=== PATIENT | female | born 1975 | race Caucasian/White ===

== ENCOUNTER 2018-03-25 13:59 | Emergency (ER) | payer BC ==
[2018-03-25 14:51] LABS: URINE BLOOD (Dip) POC 3+ (NEGATIVE); URINE GLUCOSE (Dip) POC Negative (NEGATIVE); URINE KETONES (Dip) POC Trace (NEGATIVE); URINE LEUKOCYTE EST (Dip) POC Negative (NEGATIVE); URINE NITRITE (Dip) POC Negative (NEGATIVE); URINE TOTAL PROTEIN POC Negative (NEGATIVE)
[2018-03-25 15:13] LABS: ADD MAN DIFF? NO
[2018-03-25 15:17] LABS: WHITE BLOOD COUNT 8.8 10^3/ul (4.8-10.8)
[2018-03-25 15:17] LABS: BASOPHILS % 0.3 % (0.0-2.0); EOSINOPHILS # 0.2 10^3/ul (0.0-0.5); HEMATOCRIT 35.7 % (37.0-47.0); HEMOGLOBIN 11.7 g/dl (12.0-16.0); LYMPHOCYTES # 1.8 10^3/ul (0.8-2.9); MEAN CORPUSCULAR HEMOGLOBIN 28.4 pg (29.0-33.0); MEAN CORPUSCULAR HGB CONC 32.8 g/dl (32.0-37.0); MEAN CORPUSCULAR VOLUME 86.7 fl (82.0-101.0); MEAN PLATELET VOLUME 10.4 fl (7.4-10.4); MONOCYTE # 0.9 10^3/ul (0.3-0.9); MONOCYTES % 9.7 % (0.0-11.0); NEUTROPHILS % 67.7 % (39.0-77.0); PLATELET COUNT 311 10^3/UL (140-415); RED BLOOD COUNT 4.12 10^6/ul (4.20-5.40); RED CELL DISTRIBUTION WIDTH 13.5 % (11.5-14.5)
== END 2018-03-25 16:30 | disposition home or self-care (01) ==
LOC: FTE 13:59
DX: O20.0 Threatened abortion (principal); O10.911 Unspecified pre-existing hypertension complicating pregnancy, first trimester; Z3A.01 Less than 8 weeks gestation of pregnancy; Z79.82 Long term (current) use of aspirin
CPT/HCPCS: 36415; 76801; 76817; 81003; 84702; 85025; 86900; 86901; 99284-25

== ENCOUNTER 2018-03-27 13:34 | Emergency (ER) | payer BC ==
[2018-03-27 15:06] LABS: ADD MAN DIFF? NO
[2018-03-27 15:12] LABS: BASOPHILS % 0.4 % (0.0-2.0); EOSINOPHILS # 0.2 10^3/ul (0.0-0.5); EOSINOPHILS % 2.4 % (0.0-7.0); HEMATOCRIT 36.5 % (37.0-47.0); LYMPHOCYTES # 2.3 10^3/ul (0.8-2.9); LYMPHOCYTES % 27.2 % (15.0-51.0); MEAN CORPUSCULAR HEMOGLOBIN 29.3 pg (29.0-33.0); MEAN CORPUSCULAR HGB CONC 32.9 g/dl (32.0-37.0); MEAN PLATELET VOLUME 10.4 fl (7.4-10.4); MONOCYTE # 0.8 10^3/ul (0.3-0.9); MONOCYTES % 9.7 % (0.0-11.0); NEUTROPHIL # 5.1 10^3/ul (1.6-7.5); NEUTROPHILS % 60.1 % (39.0-77.0); PLATELET COUNT 304 10^3/UL (140-415); RED CELL DISTRIBUTION WIDTH 13.1 % (11.5-14.5)
[2018-03-27 15:12] LABS: WHITE BLOOD COUNT 8.5 10^3/ul (4.8-10.8)
[2018-03-27 15:38] LABS: ADD UMIC NO; UR ASCORBIC ACID NEGATIVE (NEGATIVE); UR BILIRUBIN (Dip) NEGATIVE (NEGATIVE); UR BLOOD (Dip) NEGATIVE (NEGATIVE); UR CLARITY CLEAR (CLEAR); UR COLOR STRAW (YELLOW); UR GLUCOSE (Dip) NEGATIVE (NEGATIVE); UR KETONES (Dip) NEGATIVE (NEGATIVE); UR LEUKOCYTE ESTERASE (Dip) NEGATIVE Leu/ul (NEGATIVE); UR NITRITE (Dip) NEGATIVE (NEGATIVE); UR SPECIFIC GRAVITY (Dip) 1.006 (1.003-1.030); UR TOTAL PROTEIN (Dip) NEGATIVE (NEGATIVE); UR UROBILINOGEN (Dip) NEGATIVE (NEGATIVE)
== END 2018-03-27 17:03 | disposition home or self-care (01) ==
LOC: FTE 13:34
DX: O20.9 Hemorrhage in early pregnancy, unspecified (principal); O10.019 Pre-existing essential hypertension complicating pregnancy, unspecified trimester; R10.2 Pelvic and perineal pain; Z3A.00 Weeks of gestation of pregnancy not specified; Z79.82 Long term (current) use of aspirin
CPT/HCPCS: 76801; 76817; 81003; 84702; 85025; 99284-25

== ENCOUNTER 2018-04-01 14:57 | Emergency (ER) | payer BC ==
[2018-04-01 16:45] LABS: ADD UMIC NO; UR ASCORBIC ACID NEGATIVE (NEGATIVE); UR BILIRUBIN (Dip) NEGATIVE (NEGATIVE); UR BLOOD (Dip) NEGATIVE (NEGATIVE); UR CLARITY CLEAR (CLEAR); UR COLOR YELLOW (YELLOW); UR GLUCOSE (Dip) NEGATIVE (NEGATIVE); UR KETONES (Dip) NEGATIVE (NEGATIVE); UR LEUKOCYTE ESTERASE (Dip) NEGATIVE Leu/ul (NEGATIVE); UR NITRITE (Dip) NEGATIVE (NEGATIVE); UR SPECIFIC GRAVITY (Dip) 1.013 (1.003-1.030); UR TOTAL PROTEIN (Dip) NEGATIVE (NEGATIVE); UR UROBILINOGEN (Dip) NEGATIVE (NEGATIVE)
== END 2018-04-01 18:20 | disposition home or self-care (01) ==
LOC: FTE 18:20
DX: O26.891 Other specified pregnancy related conditions, first trimester (principal); R10.2 Pelvic and perineal pain; O10.011 Pre-existing essential hypertension complicating pregnancy, first trimester; Z3A.01 Less than 8 weeks gestation of pregnancy; Z79.82 Long term (current) use of aspirin
CPT/HCPCS: 36415; 76801; 76817; 81003; 84702; 99284-25

== ENCOUNTER 2018-04-06 12:52 | Day surgery (SDC) | payer BC ==
[2018-04-06 14:53] LABS: INR 1.16; PT RATIO 1.2
[2018-04-06 14:54] LABS: PARTIAL THROMBOPLASTIN TIME 32.6 Sec (25.0-35.0)
[2018-04-06] MEDS ORDERED: PROPOFOL 20 ML ×2 (17:29→17:47)
[2018-04-06] MEDS ORDERED: FENTAnyl 50 MCG/ML VIAL ×2 (17:29→17:30)
[2018-04-06] MEDS ORDERED: ONDANSETRON 4 MG INJ (17:38)
[2018-04-06] MEDS ORDERED: METOCLOPRAMIDE 10 MG INJ (17:38)
[2018-04-06] MEDS ORDERED: OXYTOCIN 10 UNIT INJ (17:38)
[2018-04-06] MEDS ORDERED: KETOROLAC 30 MG INJ (17:39)
[2018-04-06] MEDS ORDERED: DEXAMETHASONE 4 MG/ML 1 ML INJ (17:39)
[2018-04-06] MEDS ORDERED: CEFAZOLIN 1 GM INJ (17:47)
[2018-04-06] MEDS ORDERED: hydrALAzine 20 MG INJ IV (18:00)
[2018-04-06] MEDS ORDERED: EPHEDrine SULFATE 50 MG/5 ML SYG IV (18:00)
[2018-04-06] MEDS ORDERED: HYDROmorphONE 1 MG/5 ML IV SYRINGE IV (18:00)
[2018-04-06] MEDS ORDERED: LABETALOL HCL 20MG INJ IV (18:00)
[2018-04-06] MEDS ORDERED: METOCLOPRAMIDE 10 MG INJ IV (18:00)
[2018-04-06] MEDS ORDERED: FENTAnyl 50 MCG/ML VIAL IV ×2 (18:00)
[2018-04-06] MEDS ORDERED: DIPHENHYDRAMINE 50 MG INJ IV (18:00)
[2018-04-06] MEDS ORDERED: ONDANSETRON 4 MG INJ IV (18:00)
[2018-04-06] MEDS ORDERED: OXYCODONE/ACETAMINOPHEN (5/325) TAB PO ×2 (18:00)
[2018-04-06] MEDS ORDERED: MEPERIDINE 25 MG INJ IV (18:00)
[2018-04-06] MEDS ORDERED: ACETAMINOPHEN 325 MG TAB PO (18:30)
[2018-04-06] MEDS: FENTAnyl 50 MCG/ML VIAL IV (18:55)
[2018-04-06] MEDS: HYDROmorphONE 1 MG/5 ML IV SYRINGE IV (18:56)
== END 2018-04-06 19:20 | disposition home or self-care (01) ==
LOC: SDS 12:52
DX: O03.4 Incomplete spontaneous abortion without complication (principal); E66.9 Obesity, unspecified; Z68.35 Body mass index [BMI] 35.0-35.9, adult
CPT/HCPCS: 59812; 85610; 85730; 86850; 86900; 86901; 88305